=== PATIENT | male | born 1950 | race Caucasian/White ===

== ENCOUNTER → 2016-10-06 | Outpatient (REF) | payer MEDICARE ==
[2016-10-08 00:06] LABS: Lyme Disease IgG/IgM Antibodie <0.91 ISR (0.00-0.90); Lyme Disease IgM Ab Quantitati <0.80 index (0.00-0.79)
== END ==
LOC: M LAB REF 13:51
PROVIDERS: ATTEND Internal Medicine
DX: S80.869A Insect bite (nonvenomous), unspecified lower leg, initial encounter (principal); W57.XXXA Bitten or stung by nonvenomous insect and other nonvenomous arthropods, initial encounter; Y92.009 Unspecified place in unspecified non-institutional (private) residence as the place of occurrence of the external cause

== ENCOUNTER → 2017-04-26 | Outpatient (CLI) | payer MEDICARE | LOC: M EKG 17:52 | DX: Z01.812 Encounter for preprocedural laboratory examination (principal); N40.0 Benign prostatic hyperplasia without lower urinary tract symptoms; R00.1 Bradycardia, unspecified | CPT/HCPCS: 93005 ==

== ENCOUNTER 2017-04-27 06:04 | Day surgery (SDC) | payer MEDICARE ==
[2017-04-27] MEDS ORDERED: LR 1,000 ML IV ×3 (06:15→09:45)
[2017-04-27] MEDS ORDERED: ONDANSETRON 4MG/2ML VIAL (J2405) As Ordered (06:43)
[2017-04-27] MEDS ORDERED: ROCURONIUM BROMIDE 50 MG/5 ML VIAL As Ordered (06:43)
[2017-04-27] MEDS ORDERED: dexameTHASONE 4 MG/ML 1ML VIAL (J1100) As Ordered (06:43)
[2017-04-27] MEDS ORDERED: LIDOCAINE 2% INJ 100 MG/5 ML SDV (FOR ANES.) As Ordered ×2 (06:45)
[2017-04-27] MEDS ORDERED: PROPOFOL 200 MG/20 ML VIAL As Ordered ×2 (06:45)
[2017-04-27] MEDS ORDERED: fentaNYL 250 MCG/5 ML INJECTION (J3010) As Ordered (06:51)
[2017-04-27] MEDS ORDERED: MIDAZOLAM INJ 2 MG/2 ML VIAL (J2250) As Ordered (06:51)
[2017-04-27] MEDS: CEFAZOLIN SOD 1 GM in APPROPRIATE DILUENT 1 EA IV (07:33)
[2017-04-27] MEDS ORDERED: KETOROLAC 60 MG/2 ML VIAL (J1885) As Ordered (08:11)
[2017-04-27] MEDS ORDERED: SUGAMMADEX SODIUM 500 MG/5 ML VIAL (BRIDION) As Ordered (09:04)
[2017-04-27] MEDS: LIDOCAINE W/EPINEPHRINE 1% 20ML VIAL As Ordered ×2 (09:13)
[2017-04-27] MEDS: BUPIVACAINE HCL 0.25% 10 ML VIAL As Ordered ×2 (09:13)
[2017-04-27] MEDS ORDERED: MORPHINE 4 MG/ML 1ML VIAL (J2270) IV (09:45)
[2017-04-27] MEDS ORDERED: MEPERIDINE INJ 25 MG/ML VIAL (J2175) IV (09:45)
[2017-04-27] MEDS ORDERED: ONDANSETRON 4MG/2ML VIAL (J2405) IV ×2 (09:45)
[2017-04-27] MEDS ORDERED: fentaNYL 100 MCG/2 ML INJECTION (J3010) IV (09:45)
[2017-04-27] MEDS ORDERED: NORCO, ANEXSIA 5/325MG TABLET (HYDROcodone/ACETAMINOPHEN) PO ×2 (09:45)
== END 2017-04-27 11:55 | disposition home or self-care (01) ==
LOC: M SDC 06:04
DX: K40.00 Bilateral inguinal hernia, with obstruction, without gangrene, not specified as recurrent (principal); N40.0 Benign prostatic hyperplasia without lower urinary tract symptoms; Z79.899 Other long term (current) drug therapy
CPT/HCPCS: 49650

== ENCOUNTER → 2019-04-18 | Outpatient (REF) | payer MEDICARE ==
[~2019-04-18] MED LIST: FLOM0.4C39 PO; MULT1TAB10 PO; VITA500T PO
[2019-04-18 17:00] LABS: FOLATE > 24.0 NG/ML; VITAMIN B12 LEVEL 216 PG/ML
== END ==
LOC: M LAB REF 15:51
PROVIDERS: ATTEND Registered Nurse
DX: G60.9 Hereditary and idiopathic neuropathy, unspecified (principal)

== ENCOUNTER → 2019-12-06 | Outpatient (REF) | payer MEDICARE ==
[~2019-12-06] MED LIST changes: +VITA-243 PO; -VITA500T PO
== END ==
LOC: M LAB REF 18:16 → EEVIPCON 18:16
PROVIDERS: ATTEND Physician Assistant
DX: L02.214 Cutaneous abscess of groin (principal)

== ENCOUNTER → 2020-03-11 | Outpatient (CLI) | payer SELFPAY | LOC: M LABSMTC 10:11 | PROVIDERS: ATTEND Pediatrics | DX: Z53.9 Procedure and treatment not carried out, unspecified reason (principal); Z20.828 Contact with and (suspected) exposure to other viral communicable diseases ==

== ENCOUNTER → 2021-01-26 | Outpatient (CLI) | payer MEDICARE ==
[~2021-01-26] MED LIST changes: +VITMTA PO
== END ==
LOC: M LABSMTC 09:26
PROVIDERS: ATTEND Anesthesiology
DX: Z01.812 Encounter for preprocedural laboratory examination (principal); Z20.822 Contact with and (suspected) exposure to COVID-19

== ENCOUNTER 2021-01-31 12:12 | Day surgery (SDC) | payer MEDICARE ==
[~2021-01-31] VITALS: Ht 170.2 cm; Wt 72.8 kg
[~2021-01-31 12:12] MED LIST changes: +NS 1,000 ML IV ONE
--- OUTSIDE RECORDS SUMMARY | 2021-01-31 12:23 | CCD | Continuity of Care Document ---
Author Author Malik BOOGIE M.D. Organization Unknown Address [address] [place] [address] Phone [phone] Care Team Providers Care Occ Med Physician Name Role Phone Jordan Carmichael M.D. AUTM [phone] Problems Active Problems Provider Date History of polyp of colon William Boogie M.D. Onset: Social History Type Date Description Comments Sex Unknown ETOH Use Denies alcohol use Tobacco Use Start: Unknown Patient has never smoked Allergies and adverse reactions Active Allergies Criticality Reaction | Severity Comments Date NKDA Unable to assess criticality 05/08/2013 Hay fever Unable to assess criticality 05/08/2013 Medications Active Medications SIG Qnty Indications Ordering Provide r Date Suprep Bowel Prep Kit 17.5-3.13-1.6GM/177ML Solution use as directed 354ml William Boogie M.D. 12/09/2020 History Medications No Active Medications Unknown - 12/09/2020 Immunizations Description No Information Available Vital Signs Date Vital Result Comment 12/09/2020 9:08am Height 67 inches 5'7" Weight 160.00 lb BP Systolic 124 mmHg BP Diastolic 78 mmHg Heart Rate 54 /min BMI (Body Mass Index) 25.1 kg/m2 Weight 72.576 kg Body Temperature 97.2 F 07/09/2014 1:38pm Height 67 inches 5'7" Weight 160.00 lb BP Systolic 130 mmHg BP Diastolic 75 mmHg Heart Rate 65 /min BMI (Body Mass Index) 25.1 kg/m2 Weight 72.576 kg Results Description No Information Available Procedures Date Code Description Status 12/09/2020 52445 Office/Outpatient [facility] 30 -44 Minutes Completed Medical Devices Description No Information Available Encounters Type Date Location Provider Dx Diagnosis Office Visit 12/09/2020 9:15a Main Office William Boogie M.D. Z 86.010 Personal history of colonic polyps Assessments Date Code Description Provider 12/09/2020 Z86.010 History of polyp of colon William Bogoie M.D. Plan of Treatment Future Appointment(s):* 01/31/2021 1:45 pm - William Boogie M.D. 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 No c/o abdominal pain, change in bowel habits or rectal bleeding. No new medical issues. No heartburn, or dysphagia. Experiencing no pain. Colorectal screen due to patient being at least the age fifty or greater. Plan:1. Colonoscopy to cecum2. Informed consent Functional Status Description No Information Available Mental Status Description No Information Available Referrals Description No Information Available
--- OUTSIDE RECORDS SUMMARY | 2021-01-31 12:23 | CCD | Continuity of Care Document ---
Author Author Malik BOOGIE M.D. Organization Unknown Address [address] [place] [address] Phone [phone] Care Team Providers Care Domestic Technician Name Role Phone Jordan Carmichael M.D. AUTM [phone] Problems Active Problems Provider Date History of [...] kg Results Description No Information Available Procedures Description No Information Available Medical Devices Description No Information Available Encounters Description No Information Available Assessments Date Code Description Provider 12/09/2020 Z86.010 History of polyp of colon William Boogie M.D. Plan of Treatment Future Appointment(s):* 01/31/2021 [...]
--- OUTSIDE RECORDS SUMMARY | 2021-01-31 12:24 | CCD ---
Author Author [facility] Organization [facility] Address Unknown Phone Unavailable Care Team Providers Care Pencils Washer Name Role Phone Alma Boogie MD Unavailable Unavailable Alma Boogie MD Unavailable Unavailable Alma Boogie MD Unavailable Unavailable Alma Boogie MD Unavailable Unavailable Alma Boogie MD Unavailable Unavailable Alma Boogie MD Unavailable Unavailable Alma Boogie MD Unavailable Unavailable Alma Boogie MD Unavailable Unavailable Alma Boogie MD Unavailable Unavailable Alma Boogie MD Unavailable Unavailable Alma Boogie MD Unavailable Unavailable Alma Boogie MD Unavailable Unavailable Alma Boogie MD Unavailable Unavailable Alma Boogie MD Unavailable Unavailable Alma Boogie MD Unavailable Unavailable lAma Boogie MD Unavailable Unavailable Alma Boogie MD Unavailable Unavailable Alma Boogie MD Unavailable Unavailable Alma Boogie MD Unavailable Unavailable Alma Boogie MD Unavailable Unavailable Alma Boogie MD Unavailable Unavailable Alma Boogie MD Unavailable Unavailable Alma Boogie MD Unavailable Unavailable Alma Boogie MD Unavailable Unavailable Alma Boogie MD Unavailable Unavailable Alma Boogie MD Unavailable Unavailable Alma Boogie MD Unavailable Unavailable Alma Boogie MD Unavailable Unavailable Alma Boogie MD Unavailable Unavailable Alma Boogie MD Unavailable Unavailable Alma Boogie MD Unavailable Unavailable Alma Boogie MD Unavailable Unavailable Alma Boogie MD Unavailable Unavailable Alma Boogie MD Unavailable Unavailable Alma Boogie MD Unavailable Unavailable Alma Boogie MD Unavailable Unavailable Alma Boogie MD Unavailable Unavailable Alma Boogie MD Unavailable Unavailable Alma Boogie MD Unavailable Unavailable Alma Boogie MD Unavailable Unavailable Alma Boogie MD Unavailable Unavailable Alma Boogie MD Unavailable Unavailable Alma Boogie MD Unavailable Unavailable Alma Boogie MD Unavailable Unavailable Alma Boogie MD Unavailable Unavailable Alma Boogie MD Unavailable Unavailable Alma Boogie MD Unavailable Unavailable Alma Boogie MD Unavailable Unavailable Alma Boogie MD Unavailable Unavailable Alma Boogie MD Unavailable Unavailable Alma Boogie MD Unavailable Unavailable PICKERAL JR, J OLI PA-C Unavailable Unavailable PICKERAL JR, J OLI PA-C Unavailable Unavailable PICKERAL JR, J OLI PA-C Unavailable Unavailable PICKERAL JR, J OLI PA-C Unavailable Unavailable PICKERAL JR, J OLI PA-C Unavailable Unavailable PICKERAL JR, J OLI PA-C Unavailable Unavailable PICKERAL JR, J OLI PA-C Unavailable Unavailable PICKERAL JR, J OLI PA-C Unavailable Unavailable PICKERAL JR, J OLI PA-C Unavailable Unavailable PICKERAL JR, J OLI PA-C Unavailable Unavailable PICKERAL JR, J OLI PA-C Unavailable Unavailable PICKERAL JR, J OLI PA-C Unavailable Unavailable PICKERAL JR, J OLI PA-C Unavailable Unavailable PICKERAL JR, J OLI PA-C Unavailable Unavailable PICKERAL JR, J OLI PA-C Unavailable Unavailable PICKERAL JR, J OLI PA-C Unavailable Unavailable PICKERAL JR, J OLI PA-C Unavailable Unavailable PICKERAL JR, J OLI PA-C Unavailable Unavailable PICKERAL JR, J OLI PA-C Unavailable Unavailable PICKERAL JR, J OLI PA-C Unavailable Unavailable PICKERAL JR, J OLI PA-C Unavailable Unavailable PICKERAL JR, J OLI PA-C Unavailable Unavailable PICKERAL JR, J OLI PA-C Unavailable Unavailable PICKERAL JR, J OLI PA-C Unavailable Unavailable PICKERAL JR, J OLI PA-C Unavailable Unavailable PICKERAL JR, J OLI PA-C Unavailable Unavailable PICKERAL JR, J OLI PA-C Unavailable Unavailable Andrew Carmichael MD Unavailable Unavailable Andrew Carmichael MD Unavailable Unavailable Andrew Carmichael MD Unavailable Unavailable Andrew Carmichael MD Unavailable Unavailable Andrew Carmichael MD Unavailable Unavailable WestfieldnAdrew MD Unavailable Unavailable WestfieldAndrew MD Unavailable Unavailable JanyAndrew MD Unavailable Unavailable JanyAndrew MD Unavailable Unavailable JanyAndrew MD Unavailable Unavailable JanyAndrew MD Unavailable Unavailable JanyAndrew MD Unavailable Unavailable WestfieldAndrew MD Unavailable Unavailable WestfieldAndrew MD Unavailable Unavailable WestfieldAndrew MD Unavailable Unavailable WestfieldAndrew MD Unavailable Unavailable WestfieldAndrew MD Unavailable Unavailable JanyAndrew MD Unavailable Unavailable WestfieldAndrew MD Unavailable Unavailable JanyAndrew MD Unavailable Unavailable WestfieldAndrew MD Unavailable Unavailable JanyAndrew MD Unavailable Unavailable WestfieldAndrew MD Unavailable Unavailable JanyAndrew MD Unavailable Unavailable JanyAndrew MD Unavailable Unavailable JanyAndrew MD Unavailable Unavailable JanyAndrew MD Unavailable Unavailable WestfieldAndrew MD Unavailable Unavailable JanyAndrew MD Unavailable Unavailable JanyAndrew MD Unavailable Unavailable WestfieldAndrew MD Unavailable Unavailable JanyAndrew MD Unavailable Unavailable WestfieldAndrew MD Unavailable Unavailable JanyAndrew MD Unavailable Unavailable JanyAndrew MD Unavailable Unavailable WestfieldAndrew MD Unavailable Unavailable WestfieldAndrew MD Unavailable Unavailable JanyAndrew MD Unavailable Unavailable WestfieldAndrew MD Unavailable Unavailable JanyAndrew MD Unavailable Unavailable JanyAndrew keyes MD Unavailable Unavailable WestfieldAndrew MD Unavailable Unavailable WestfieldAndrew MD Unavailable Unavailable WestfieldAndrew keyes MD Unavailable Unavailable WestfieldAndrew MD Unavailable Unavailable WestfieldAndrew MD Unavailable Unavailable WestfieldAndrew keyes MD Unavailable Unavailable WestfieldAndrew keyes MD Unavailable Unavailable WestfieldAndrew MD Unavailable Unavailable JanyAndrew MD Unavailable Unavailable WestfieldAndrew MD Unavailable Unavailable JanyAndrew MD Unavailable Unavailable JanyAndrew MD Unavailable Unavailable JanyAndrew MD Unavailable Unavailable WestfieldAndrew MD Unavailable Unavailable JanyAndrew MD Unavailable Unavailable WestfieldAndrew MD Unavailable Unavailable WestfieldAndrew MD Unavailable Unavailable WestfieldAndrew MD Unavailable Unavailable WestfieldAndrew MD Unavailable Unavailable WestfieldAndrew MD Unavailable Unavailable Andrew Carmichael MD Unavailable Unavailable Andrew Carmichael MD Unavailable Unavailable Andrew Carmichael MD Unavailable Unavailable WestfieldAndrew keyes MD Unavailable Unavailable JanyAndrew keyes MD Unavailable Unavailable WestfieldAndrew keyes MD Unavailable Unavailable JanyAndrew keyes MD Unavailable Unavailable WestfieldAndrew keyes MD Unavailable Unavailable JanyAndrew keyes MD Unavailable Unavailable WestfieldAndrew keyes MD Unavailable Unavailable WestfieldAndrew keyes MD Unavailable Unavailable JanyAndrew keyes MD Unavailable Unavailable JanyAndrew keyes MD Unavailable Unavailable JanyAndrew keyes MD Unavailable Unavailable WestfieldAndrew keyes MD Unavailable Unavailable WestfieldAndrew keyes MD Unavailable Unavailable WestfieldAndrew keyes MD Unavailable Unavailable JanyAndrew keyes MD Unavailable Unavailable JanyAndrew keyes MD Unavailable Unavailable WestfieldAndrew keyes MD Unavailable Unavailable JanyAndrew keyes MD Unavailable Unavailable Andrew Carmichael MD Unavailable Unavailable Andrew Carmichael MD Unavailable Unavailable Andrew Carmichael MD Unavailable Unavailable JanyAndrew keyes MD Unavailable Unavailable ADALI, MACY PA Unavailable Unavailable ADALI, MACY PA Unavailable Unavailable ADALI, MACY PA Unavailable Unavailable ADALI, MACY PA Unavailable Unavailable ADALI, MACY PA Unavailable Unavailable ADALI, MACY PA Unavailable Unavailable ADALI, MACY PA Unavailable Unavailable ADALI, MACY PA Unavailable Unavailable ADALI, MACY PA Unavailable Unavailable ADALI, MACY PA Unavailable Unavailable ADALI, MACY PA Unavailable Unavailable ADALI, MACY PA Unavailable Unavailable ADALI, MACY PA Unavailable Unavailable ADALI, MACY PA Unavailable Unavailable ADALI, MACY PA Unavailable Unavailable ADALI, MACY PA Unavailable Unavailable ADALI, MACY PA Unavailable Unavailable ADALI, MACY PA Unavailable Unavailable ADALI, MACY PA Unavailable Unavailable ADALI, MACY PA Unavailable Unavailable ADALI, MACY PA Unavailable Unavailable ADALI, MACY PA Unavailable Unavailable ADALI, MACY PA Unavailable Unavailable ADALI, MACY PA Unavailable Unavailable ADALI, MACY PA Unavailable Unavailable ADALI, MACY PA Unavailable Unavailable ADALI, MACY PA Unavailable Unavailable ADALI, MACY PA Unavailable Unavailable ADALI, MACY PA Unavailable Unavailable ADALI, MACY PA Unavailable Unavailable ADALI, MACY PA Unavailable Unavailable ADALI, MACY PA Unavailable Unavailable ADALI, MACY PA Unavailable Unavailable ADALI, MACY PA Unavailable Unavailable ADALI, MACY PA Unavailable Unavailable ADALI, MACY PA Unavailable Unavailable Re-disclosure Warning The records that you are about to access may contain information from federally-assisted alcohol or drug abuse programs. If such information is present, then the following federally mandated warning applies: This information has been disclosed to you from records protected by federal confidentiality rules (42 CFR part 2). The federal rules prohibit you from making any further disclosure of this information unless further disclosure is expressly permitted by the written consent of the person to whom it pertains or as otherwise permitted by 42 CFR part 2. A general authorization for the release of medical or other information is NOT sufficient for this purpose. The Federal rules restrict any use of the information to criminally investigate or prosecute any alcohol or drug abuse patient.The records that you are about to access may contain highly sensitive health information, the redisclosure of which is protected by Article 27-F of the [facility] Public Health law. If you continue you may have access to information: Regarding HIV / AIDS; Provided by facilities licensed or operated by the [facility] Office of Mental Health; or Provided by the [facility] Office for People With Developmental Disabilities. If such information is present, then the following [facility] mandated warning applies: This information has been disclosed to you from confidential records which are protected by state law. State law prohibits you from making any further disclosure of this information without the specific written consent of the person to whom it pertains, or as otherwise permitted by law. Any unauthorized further disclosure in violation of state law may result in a fine or detention sentence or both. A general authorization for the release of medical or other information is NOT sufficient authorization for further disc losure. Family History Family Member Name Family Member Gender Family Member Status Date o f Status Description Data Source(s) Unknown Male Problem [facility] () Unknown Male Problem [facility] ([facility] Unknown Male Encounters Encounter Providers Location Date Indications Data Source(s ) Outpatient Attender: William Boogie MD Main Office 12/09/2020 09:15:00 AM EDT [facility] ([facility]) Outpatient Attender: Jordan Pacheco 0 10/05/2020 02:30:00 PM EDT [facility] ([facility] ) Outpatient Attender: Jordan Pacheco 0 12/08/2019 03:00:00 PM EDT [facility] ([facility] ) Outpatient Attender: MACY Alan Vishal Thompson ry 12/06/2019 01:10:00 PM EDT [facility] Outpatient Attender: OLI Pacheco 0 12/05/2019 10:40:00 AM EDT [facility] ([facility] ) Immunizations Vaccine Date Status Description Data Source(s) COVID-19 VACCINE Moderna 01/17/2021 12:00:00 AM EST completed [facility] Vaccine Series Complete: YESThis Data wa s Submitted to [facility] Via [employer] COVID-19 VACCINE Moderna 05/04/2020 12:00:00 AM EST completed [facility] Vaccine Series Complete: YESThis Data wa s Submitted to [facility] [employer] COVID-19 VACCINE Moderna 04/06/2020 12:00:00 AM EST completed [facility] Vaccine Series Complete: NOThis Data was Submitted to [facility] [employer] Medications Medication Brand Name Start Date Product Form Dose Route Admi nistrative Instructions Pharmacy Instructions Status Indications Reaction Description Data Source(s) No Active Medications 12/09/2020 12:00:00 AM EDT completed [facility] ([facility]) SUPREP BOWEL PREP KIT 17.5-3.13-1.6 gram SODIUM, POTASSIUM,M AG SULFATES 12/09/2020 12:00:00 AM EDT recon soln 354 USE DIRECTED USE DIRECTED SOLD: 12/09/2020 [facility] Suprep Bowel Prep Kit Suprep Bowel Prep Kit 12/09/2020 12:00:00 AM EDT active [facility]) Shingrix Shingrix 10/05/2020 12:00:00 AM EDT activ e [facility] ([facility]) Covid-19 vaccine, Unspecified 05/04/2020 12:00:00 AM EST completed [facility]) Medication administered onsite Covid-19 vaccine, Unspecified 04/06/2020 12:00:00 AM EST completed [facility]) Medication administered onsite doxycycline hyclate 100 MG Oral Capsule DOXYCYCLINE HYCLATE 12/15/2019 12:00:00 AM EDT capsule 14 TAKE ONE CAPSULE BY MOUTH TW ICE A DAY TAKE ONE CAPSULE BY MOUTH TWICE A DAY SOLD: 12/16/2019 [facility] 2 % 12/08/2019 12:00:00 AM EDT ointment 22 APPLY TO AFFECTED INGUINAL AREA TWO TIMES A DAY DIRECTED APPLY TO AFFECTED INGUINAL AREA TWO TIME S A DAY DIRECTED SOLD: 12/08/2019 [facility] doxycycline hyclate 100 MG Oral Capsule Doxycycline Hyclate 12/08/2019 12:00:00 AM EDT ORAL active [facility] Mupirocin 0.02 MG/MG Topical Ointment Mupirocin 12/08/2019 12:00:00 AM EDT active [facility] ([facility]) Doxycycline Monohydrate 100 MG Oral Capsule Doxycycline Wilkes hydrate 12/06/2019 12:00:00 AM EDT ORAL active M [facility] ([facility]) 100 mg 12/06/2019 12:00:00 AM EDT capsule 20 TAKE ONE CAPSULE BY MOUTH TWICE A DAY FOR 10 DAYS TAKE ONE CAPSULE BY MOUTH TWICE A DAY FOR 10 DAYS SOLD : 12/06/2019 [facility] Cephalexin 500 MG Oral Capsule Cephalexin 12/05/2019 12:00:00 AM EDT ORAL completed [facility] Cephalexin 500 MG Oral Capsule CEPHALEXIN 12/05/2019 12:00:00 AM EDT capsule 20 TAKE ONE CAPSULE BY MOUTH THREE TIMES A DAY FOR 10 DAY S TAKE ONE CAPSULE BY MOUTH THREE TIMES A DAY FOR 10 DAYS SOLD: 12/05/2019 [facility] Insurance Providers Payer name Policy type / Coverage type Policy ID Covered democrat ID Covered democrat's relationship to villegas Policy Villegas Plan Information [place] [employer] Commercial [id number] Self S [id number] [facility] [employer] C[employer] Commercial [id number] Self S [id number] MEDICARE BLUE PPO [id number] SP [id number] BCBS [place] [id number]/804 [id number] SP [id number] BS [place] [employer] Commercial [id number] Self V [id number] [employer] [place] [employer] Commercial [id number] Self Y [id number] Medicare Blue Ppo Commercial [id number] Self [id number] MEDICARE BLUE PPO [id number] SP [id number] Blue Shield MCR Advantage Medigap Part B [id number] Self BCBS of [facility] Other [id number] Se [id number] [place] [employer] Medigap Part B [id number] Self A [id number] [place] [employer] [place] (pr) Medigap Part B [id number] Self BS [place] Commercial [id number] Self SELF PAY ONLY [id number] SP [id number] [place] [employer] Medigap Part B [id number] Self A [id number] BS Medicare Ppo Commercial [id number] Self Problems, Conditions, and Diagnoses No Information Surgeries/Procedures Procedure Description Date Indications Data Source(s) OFFICE OUTPATIENT NEW 30 MINUTES 12/09/2020 12:00:00 A M EDT [facility]) ECG ROUTINE ECG W/LEAST 12 LDS W/I&R 10/05/2020 12:00: 00 AM [facility] OFFICE OUTPATIENT VISIT 25 MINUTES 10/05/2020 12:00:00 AM EDT [facility] Tangential Biopsy Of Skin, Single Lesion 01/13/2020 12 :00:00 AM EST [facility] Results ID Date Data Source [id number] 10/05/2020 08:50:00 AM EDT [facility]) Name Value Range Interpretation Code Description Data Francie rce(s) Supporting Document(s) Prostate specific Ag [Mass/volume] in Serum or Plasma 2.88 ng/mL [facility]) This assay was performed on the Siemens Dimension EXL using the B- Galactosidase/CPRG methodology and should not be compared interchangeably with other methods. The PSA should not be used alone as a screening test for the presence or absence of malignant disease. ID Date Data Source [id number] 10/05/2020 08:50:00 AM EDT [facility]) Name Value Range Interpretation Code Description Data Francie rce(s) Supporting Document(s) Cholesterol [Mass/volume] in Serum or Plasma 250 mg/dL 131-200 [facility] ([facility]) Triglyceride [Mass/volume] in Serum or Plasma 162 mg/dL 30-150 [facility] ([facility]) Cholesterol in HDL [Mass/volume] in Serum or Plasma 43 mg/dL 35-60 [facility] ([facility]) Cholesterol in LDL [Mass/volume] in Serum or Plasma by calcu lation 175 CALC 50-159 [facility] ID Date Data Source [id number] 10/05/2020 08:50:00 AM EDT [facility]) Name Value Range Interpretation Code Description Data Francie rce(s) Supporting Document(s) Glucose [Mass/volume] in Serum or Plasma 97 mg/dL 74-99 [facility] ([facility]) 100-125 mg/dL PRE-DIABETES/FASTING >126 mg/dL DIABETES/FASTING Creatinine 0.8 mg/dL 0.6-1.3 [facility] Urea nitrogen [Mass/volume] in Serum or Plasma 13 mg/dL 7-18 [facility] ([facility]) Potassium [Moles/volume] in Serum or Plasma 4.1 meq/L 3.5-5.1 [facility] ([facility]) Chloride [Moles/volume] in Serum or Plasma 104 meq/L 98-107 [facility] ([facility]) Sodium [Moles/volume] in Serum or Plasma 141 meq/L 136-145 [facility] ([facility]) Carbon dioxide, total [Moles/volume] in Serum or Plasma 31 meq/L 21 -32 [facility] ([facility]) Calcium [Mass/volume] in Serum or Plasma 9.2 mg/dL 8.5-10.1 [facility] ([facility]) Alkaline phosphatase isoenzyme [Units/volume] in Serum or Pl asma 92 mg/dL 46-116 [facility] ([facility]) Aspartate aminotransferase [Enzymatic activity/volume] in Serum or Plasma 17 U/L 15-37 [facility] ([facility] ) Total Bilirubin 1.0 mg/dL 0.2-1.0 [facility] ([facility]) Albumin [Mass/volume] in Serum or Plasma 3.9 g/dL 3.4-5.0 [facility] ([facility]) Proteinase 3 Ab [Units/volume] in Serum 6.4 g/dL 6.4-8.2 [facility] ([facility]) Alanine aminotransferase [Enzymatic activity/volume] in Seru m or Plasma 27 U/L 12-78 [facility] ([facility]) A/G Ratio 1.56 CALC 1.00-1.90 [facility]) Glomerular filtration rate/1.73 sq M pre dicted among non-blacks [Volume Rate/Area] in Serum or Plasma by Creatinine-based formula (MDRD) Laboratory test result [facility] ([facility] ) Glomerular filtration rate/1.73 sq M pre dicted among blacks [Volume Rate/Area] in Serum or Plasma by Creatinine-based formula (MDRD) Laboratory test result [facility] <content>CHRONIC KIDNEY DISEASE STAGING PER NKF</content>
<content></content>
<content>STAGE I & II GFR >= 60 NORMAL TO MILDLY DECREASED</content>
<content>STAGE III GFR 30-59 MODERATELY DECREASED</content>
<content>STAGE IV GFR 15-29 SEVERELY DECREASED</content>
<content>STAGE V GFR <15 VERY LITTLE GFR LEFT</content>
<content>ESRD GFR <15 ON LUMBER SALES SUPERVISOR</content>
<content></content> ID Date Data Source [id number] 10/05/2020 08:50:00 AM EDT [facility] ([facility]) Name Value Range Interpretation Code Description Data Francie rce(s) Supporting Document(s) Erythrocytes [#/volume] in Blood by Automated count 5.12 x10*6/UL 4.2 0-6.30 [facility] ([facility]) Hemoglobin [Mass/volume] in Blood 15.0 g/dL 12.0-18.0 [facility] ([facility]) Leukocytes [#/volume] in Blood by Automated count 4.6 x10*3/UL 4.1-10 .9 [facility] MCV 86.1 fL 80.0-97.0 [facility] [facility]) Hematocrit [Volume Fraction] of Blood by Automated count 44.1 % 3 7.0-51.0 [facility] ([facility]) MCHC 34.0 g/dL 31.0-38.0 [facility] ([place] [facility] MCH 29.3 pg 26.0-32.0 [facility] ([facility] Platelets [#/volume] in Blood by Automated count 274 x10*3/UL 140-440 [facility] Erythrocyte distribution width [Ratio] by Automated count 12.8 % 11.6-13.7 [facility] ([facility]) MPV 7.4 FL 7.8-11.0 [facility] [facility] Neut % 57.3 % 37.0-92.0 [facility] [facility] Mid % 7.2 % 1.7-9.3 [facility] Lymph % 35.5 % 10.0-58.5 [facility] Mid # 0.4 x10*3/UL 0.1-0.6 [facility] ([facility]) Lymph # 1.6 x10*3/UL 0.6-4.1 [facility] ([facility]) Neut # 2.6 x10*3/UL 2.0-7.8 [facility] ([facility]) ID Date Data Source [id number] 01/13/2020 03:31:00 PM EST [facility] ([facility]) Name Value Range Interpretation Code Description Data Francie rce(s) Supporting Document(s) [facility] Laboratory test result [facility] ([facility]) RESULTS DIAGNOSIS DIAGNOSIS: RT UPPER BACK- SEBORRHEIC KERATOSIS, INFLAMED RESULTS SIGNATURE Angel Moon MD Electronic Signature: 22 JAN 2020 02:14 PM CLINICAL INFORMATION CLINICAL INFORMATION LESION SPECIMEN DATA GROSS DESCRIPTION Received in 10% buffered formalin is a shave biopsy of skin measuring [id number]. The specimen is trisected and entirely submitted in one cassette. MICROSCOPIC DESCRIPTION There is basket-weave and laminated orthokeratosis, and parakeratosis, overlying an epidermis characterized by papillomatosis, acanthosis, basaloid cells and horn pseudocysts. There is a mononuclear cell infiltrate in the papillary dermis. CPT Codes 54766 The CPT codes provided are for information purposes only, and are based on AMA guidelines without regard to specific payor requirements. END OF REPORT FINAL REPORT-ACC FINAL [facility],[address] [place] [address]. [phone]. [phone]. Japanese Professor: Trae Briones MD [facility] [id number], [place] [id number], [place] [id number] Laboratory test finding (navigational concept) Laboratory test result [facility] ([facility]) ID Date Data Source [id number] 12/06/2019 02:34:00 PM EDT [facility] ([facility] Name Value Range Interpretation Code Description Data Francie rce(s) Supporting Document(s) Bacteria identified in Wound by Culture Laboratory test result [facility] ([facility]) <content>FULL REPORT IN LAB NOTES ([facility] a nd [facility]).</content>
<content></content>
<content>ORGANISM 1: STAPH.AUREUS METHICILLIN RESIS</content>
<content></content>
<content>QUANTITY OF GROWTH HEAVY</content>
<content></content>
<content></content>
<content>ORG ANISM 1: STAPH.AUREUS METHICILLIN RESIS</content>
<content></content>
<content>STAPH.AUREUS METHICILLIN RESIS: REACTION</content>
<content>ICR (INDUCIBLE CC RESISTANCE) IV ICR TEST RESULT</content>
<content>TETRACYCLINE PO 250 mg qid <=1 S</content>
<content>PENICILLIN G IV 1 mu q6H >=0.5 R</content>
<content>PENICILLIN G IV 1 mu q6h >=0.5 R</content>
<content>PENICILLIN G PO 250mg q6h fasting >=0.5 R</content>
<content> TRIMETHOPRIM/SULFAMETHOXAZOLE IV 160mg TMP & 800mg SMXq6h <=10 S</content>
<content>TRIMETHOPRIM/SULFAMETHOXAZOLE PO Bactrim DS Bid <=10 S</content>
<content>ERYTHROMYCIN IV 500mg q6h >=8 R</content>
<content>ERYTHROMYCIN PO 500mg q6h >=8 R</content>
<content>GENTAMICIN IV 80mg q8h <=0.5 S</content>
<content>CLINDAMYCIN IV 600mg q6h 0.25 S</content>
<content>CLINDAMYCIN PO 150mg q6h 0.25 S</content>
<content>OXACILLIN IV 500mg q6h >=4 R</content>
<content>VANCOMYCIN IV 500mg q8h 1 S</content>
<content>LINEZOLID (ZYVOX) IV 600MG Q12HR 2 S</content>
<content> LINEZOLID (ZYVOX) PO 600MG Q12HR 2 S</content>
<content>An isolate with a (+) POSITIVE ICR test is considered</content>
<content>CLINDAMYCIN RESISTANT; however, clindamycin may still</content>
<content>be effective in some patients.</content>
<content>An isolate with a (-) NEGATIVE ICR test is considered</content>
<content>CLIDAMYCIN SENSITIVE.</content>
<content></content> Procedure Social History Code Duration Value Status Description Data Source(s ) Smoking 12/06/2019 12:00:00 AM EDT Patient is a former smoker completed Patient is a former smoker [facility] ([facility], [facility]) Vital Signs ID Date Data Source UNK Name Value Range Interpretation Code Description Data Source(s) Systolic blood pressure 124 mm[Hg] 124 mm[Hg] [facility]) Body height 67 [in_i] 67 [in_i] [facility] ([facility]) 5'7" Body weight 160.00 [lb_av] 160.00 [lb_av] [facility] ([facility]) Body weight 72.576 kg 72.576 kg [facility] ([facility]) Body temperature 97.2 [degF] 97.2 [degF] [facility] ([facility]) Diastolic blood pressure 78 mm[Hg] 78 mm[Hg] [facility] ([facility]) Heart rate 54 /min 54 /min [facility] Body mass index (BMI) [Ratio] 25.1 kg/m2 25.1 k g/m2 [facility] ([facility]) Systolic blood pressure 122 mm[Hg] 122 mm[Hg] [facility]) Diastolic blood pressure 78 mm[Hg] 78 mm[Hg] [facility] ([facility]) Heart rate 62 /min 62 /min [facility] ([facility]) Body height 67 [in_i] 67 [in_i] [facility]) 5'7" Body weight 160.12 [lb_av] 160.12 [lb_av] [facility] ([facility]) Oxygen saturation in Arterial blood by Pulse oximetry 97 % 97 % [facility] ([facility]) Air Body mass index (BMI) [Ratio] 25.1 kg/m2 25.1 k g/m2 [facility] ([facility]) Body height 67 [in_i] 67 [in_i] [facility] ([facility]) 5'7" Body weight 164.00 [lb_av] 164.00 [lb_av] [facility] ([facility]) Body mass index (BMI) [Ratio] 25.7 kg/m2 25.7 k g/m2 [facility] ([facility]) Systolic blood pressure 118 mm[Hg] 118 mm[Hg] [facility]) Diastolic blood pressure 70 mm[Hg] 70 mm[Hg] [facility] ([facility]) Systolic blood pressure 136 mm[Hg] 136 mm[Hg] [facility] ([facility]) Diastolic blood pressure 81 mm[Hg] 81 mm[Hg] [facility] ([facility]) Body height 67 [in_i] 67 [in_i] [facility] ([facility]) 5'7" Body weight 157.00 [lb_av] 157.00 [lb_av] [facility] ([facility]) Body mass index (BMI) [Ratio] 24.6 kg/m2 24.6 k g/m2 [facility] ([facility]) [place] body weight 148 [lb_av] 148 [lb_av] [facility] ([facility]) Body weight 71.215 kg 71.215 kg [facility] ([facility]) Systolic blood pressure 130 mm[Hg] 130 mm[Hg] [facility] ([facility]) Diastolic blood pressure 76 mm[Hg] 76 mm[Hg] [facility] ([facility]) Heart rate 52 /min 52 /min [facility] ([facility]) Body height 67 [in_i] 67 [in_i] [facility] ([facility]) 5'7" Body weight 156.00 [lb_av] 156.00 [lb_av] [facility] ([facility]) Body mass index (BMI) [Ratio] 24.4 kg/m2 24.4 k g/m2 [facility] ([facility]) Body temperature 98.2 [degF] 98.2 [degF] [facility] ([facility], [facility]) Body weight 154.00 [lb_av] 154.00 [lb_av] [facility] ([facility], [facility]) Systolic blood pressure 131 mm[Hg] 131 mm[Hg] [facility] ([facility], [facility]) Body height 67 [in_i] 67 [in_i] [facility] ([facility], [facility]) 5'7" Body mass index (BMI) [Ratio] 24.1 kg/m2 24.1 k g/m2 [facility] ([facility], [facility]) Diastolic blood pressure 82 mm[Hg] 82 mm[Hg] [facility] ([facility], [facility]) Heart rate 58 /min 58 /min [facility] ([facility], [facility]) Respiratory rate 12 /min 12 /min [facility] ( [facility], [facility]) Oxygen saturation in Arterial blood by Pulse oximetry 97 % 97 % [facility] ([facility], [facility]) Diastolic blood pressure 70 mm[Hg] 70 mm[Hg] [facility] ([facility]) Systolic blood pressure 120 mm[Hg] 120 mm[Hg] [facility] ([facility]) Body height 67 [in_i] 67 [in_i] [facility] ([facility]) 5'7" Body weight 156.00 [lb_av] 156.00 [lb_av] [facility] ([facility]) Body mass index (BMI) [Ratio] 24.4 kg/m2 24.4 k g/m2 [facility] ([facility])
[2021-01-31] MEDS ORDERED: propofoL 200 MG/20 ML VIAL As Ordered ONE ×2 (14:05→14:22)
[2021-01-31] MEDS ORDERED: LIDOCAINE 2% 100MG/5ML SDV (FOR ANES.) As Ordered ONE (14:05)
--- NOTE | 2021-01-31 14:36 | ROOR ---
Patient Name: Malik Langston Procedure Date: 01/31/2021 2:08 PM Date of : 1950 Age: 70 Room: [facility] Gender: Male Note Status: Finalized Procedure: Total Colonoscopy to Cecum + ileoscopy + Cold Snare Polypectomy Indications: High risk colon cancer surveillance: Personal history of colonic polyps Providers: William Boogie MD Referring MD: FLAQUITA MCKINNEY JR, MD Requesting Provider: Medicines: Monitored Anesthesia Care Complications: No immediate complications. Procedure: Pre-Anesthesia Assessment: - The heart rate, respiratory rate, oxygen saturations, blood pressure, adequacy of pulmonary ventilation, and response to care were monitored throughout the procedure. The Colonoscope was introduced through the anus and advanced to the cecum, identified by appendiceal orifice and ileocecal valve. The colonoscopy was performed without difficulty. The patient tolerated the procedure well. The quality of the bowel preparation was good. Findings: The perianal and digital rectal examinations were normal. Non-bleeding internal hemorrhoids were found during retroflexion. The hemorrhoids were small and Grade I (internal hemorrhoids that do not prolapse). Multiple sessile polyps were found in the ascending colon. The polyps were small in size. These polyps were removed with a cold snare. Resection and retrieval were complete. The exam was otherwise without abnormality on direct and retroflexion views. The terminal ileum appeared normal. Impression: - Non-bleeding internal hemorrhoids. - Multiple small polyps in the ascending colon, removed with a cold snare. Resected and retrieved. - The examination was otherwise normal on direct and retroflexion views. - The examined portion of the ileum was normal. - The exam was otherwise normal to the cecum. Recommendation: - Patient has a contact number available for emergencies. The signs and symptoms of potential delayed complications were discussed with the patient. Return to normal activities tomorrow. Written discharge instructions were provided to the patient. - High fiber diet. - Discharge patient to home. - Continue present medications. - Await pathology results. - Telephone GI clinic for pathology results in 1 week. - Repeat colonoscopy in 5 years for surveillance based on pathology results. - Return to referring physician. - The findings and recommendations were discussed with the patient. Procedure Code(s): --- Professional --- 46807, Colonoscopy, flexible; with removal of tumor(s), polyp(s), or other lesion(s) by snare technique Diagnosis Code(s): --- Professional --- Z86.010, Personal history of colonic polyps K64.0, First degree hemorrhoids K63.5, Polyp of colon CPT copyright 2019 [employer]. All rights reserved. The codes documented in this report are preliminary and upon laundry aide review may be revised to meet current compliance requirements. William Boogie MD William Boogie MD 01/31/2021 2:35:52 PM Electronically signed by William Boogie MD Number of Addenda: 0 Note Initiated On: 01/31/2021 2:08 PM Estimated Blood Loss: Estimated blood loss: none.
[2021-01-31 14:55] VITALS: BP 124/64
== END 2021-01-31 14:57 | disposition home or self-care (01) ==
LOC: M OPP 12:12
PROVIDERS: ATTEND Internal Medicine Gastroenterology
DX: D12.2 Benign neoplasm of ascending colon (principal); K63.4 Enteroptosis; K64.0 First degree hemorrhoids; Z86.010 Personal history of colon polyps; Z87.891 Personal history of nicotine dependence; Z79.899 Other long term (current) drug therapy

== ENCOUNTER → 2022-06-22 | Outpatient (REF) | payer MEDICARE ==
[~2022-06-22] MED LIST changes: -NS 1,000 ML IV ONE
== END ==
LOC: M LAB REF 16:22
PROVIDERS: ATTEND Internal Medicine
DX: R31.9 Hematuria, unspecified (principal)

== ENCOUNTER → 2022-07-07 | Outpatient (REF) | payer MEDICARE | LOC: M LAB REF 12:14 | PROVIDERS: ATTEND Internal Medicine | DX: R31.9 Hematuria, unspecified (principal) ==

== ENCOUNTER → 2022-07-18 | Outpatient (CLI) | payer MEDICARE | LOC: M RAD 12:26 | PROVIDERS: ATTEND Internal Medicine | DX: N13.2 Hydronephrosis with renal and ureteral calculous obstruction (principal) ==

== ENCOUNTER → 2022-10-16 | Outpatient (CLI) | payer MEDICARE | LOC: M RAD 11:11 | PROVIDERS: ATTEND Internal Medicine | DX: M46.96 Unspecified inflammatory spondylopathy, lumbar region (principal) ==

== ENCOUNTER 2022-11-22 08:08 | Day surgery (SDC) | payer MEDICARE ==
[~2022-11-22] VITALS: Ht 170.2 cm; Wt 81.6 kg
[~2022-11-22 08:08] MED LIST changes: +NS 1,000 ML IV ONE
[2022-11-22] MEDS ORDERED: propofoL 500 MG/50 ML VIAL As Ordered ONE (09:48)
[2022-11-22] MEDS ORDERED: LIDOCAINE 2% 100MG/5ML SDV (FOR ANES.) As Ordered ONE (09:48)
[2022-11-22 10:46] VITALS: BP 145/67; TEMP 97.5; O2SAT 98
== END 2022-11-22 10:50 | disposition home or self-care (01) ==
LOC: M OPP 08:08
PROVIDERS: ATTEND Internal Medicine Gastroenterology
DX: Z86.010 Personal history of colon polyps (principal); K64.0 First degree hemorrhoids; N40.0 Benign prostatic hyperplasia without lower urinary tract symptoms; Z86.14 Personal history of Methicillin resistant Staphylococcus aureus infection; Z79.899 Other long term (current) drug therapy

== ENCOUNTER → 2023-07-26 | Outpatient (REF) | payer MEDICARE ==
[~2023-07-26] MED LIST changes: -NS 1,000 ML IV ONE
[2023-07-26 18:39] LABS: VITAMIN B12 LEVEL 382 PG/ML (211-911)
[2023-07-26 18:44] LABS: FOLATE > 24.0 NG/ML (>5.4)
[2023-08-05 16:07] LABS: ANTINUCLEAR ANTIBODIES DIRECT Negative (Negative); IMMUNOTYPING SERUM IGA SO 155 mg/dL (61-437); IMMUNOTYPING SERUM IGM SO 85 mg/dL (15-143); SJOGREN'S ANTI SS-A <0.2 AI (0.0-0.9); SJOGREN'S ANTI SS-B <0.2 AI (0.0-0.9); VITAMIN B1 LEVEL WHOLE BLOOD 130.4 nmol/L (66.5-200.0); VITAMIN B6,PYRIDOXAL PHOSPHATE 14.9 ug/L (3.4-65.2); VITAMIN E(ALPHA TOCOPHEROL) 21.6 mg/L (9.0-29.0); VITAMIN E(GAMMA TOCOPHEROL) 1.1 mg/L (0.5-4.9)
== END ==
LOC: M LAB REF 16:28
PROVIDERS: ATTEND Internal Medicine
DX: M35.00 Sjogren syndrome, unspecified (principal); G62.9 Polyneuropathy, unspecified; D51.9 Vitamin B12 deficiency anemia, unspecified

== ENCOUNTER → 2025-01-01 | Outpatient (REF) | payer MEDICARE ==
[~2025-01-01] MED LIST changes: -FLOM0.4C39 PO; +TAMS-18 PO
[2025-01-05 09:37] LABS: VITAMIN B12 LEVEL 295 PG/ML (211-911)
== END ==
LOC: M LAB REF 12:24
PROVIDERS: ATTEND Internal Medicine
DX: G60.9 Hereditary and idiopathic neuropathy, unspecified (principal)